=== PATIENT | male | born 1985 | race African-American/Black ===

== ENCOUNTER 2024-10-29 14:50 | Emergency (ER) | payer MEDICAID ==
[~2024-10-29] VITALS: Ht 167.6 cm; Wt 73.0 kg
[2024-10-29 15:02] VITALS: BP 176/102; PULSE 77; RESP 16; TEMP 98.3; O2SAT 97
[2024-10-29] MEDS: TETRACAINE 0.5% OPHTH DROPS 4ML LEFTEYE ONE (18:04)
[2024-10-29] MEDS: FLUORESCEIN SODIUM 1MG/STRIP LEFTEYE ONE (18:04)
[2024-10-29] MEDS ORDERED: OCUFLX LEFTEYE (18:22)
== END 2024-10-29 20:00 | disposition home or self-care (01) ==
LOC: ER 14:50
DX: S05.00XA Injury of conjunctiva and corneal abrasion without foreign body, unspecified eye, initial encounter (principal); X58.XXXA Exposure to other specified factors, initial encounter; Y93.89 Activity, other specified; Y92.89 Other specified places as the place of occurrence of the external cause; Y99.8 Other external cause status
CPT/HCPCS: 99283